=== PATIENT | male | born 1935 | race Caucasian/White ===

== ENCOUNTER → 2019-06-04 | Outpatient (CLI) | payer MEDICARE ==
[~2019-06-04] MED LIST: AMBIEN10 M1 PO; ASPIRIN81 MG PO; ATENOLOL50 MG PO; BUFFERED ASPIR325 M1 PO; CARDIZEM SR120 MG PO; FLECAINIDE ACE100 MG PO; IBUPROFEN200 MG PO; K-DUR 1010 MEQ PO; LIPITOR10 MG PO; METAMUCIL1 PDR PO; METOPROLOL SR25 MG PO; PRADAXA150 MG PO; TENORETIC 50 501 TAB PO; ULTRAM50 MG PO; VITAMIN D1000 IU PO
== END | disposition home or self-care (01) ==
LOC: RAD 09:30
DX: J92.9 Pleural plaque without asbestos (principal); I51.7 Cardiomegaly; M95.4 Acquired deformity of chest and rib; I48.91 Unspecified atrial fibrillation

== ENCOUNTER → 2021-10-08 | Outpatient (CLI) | payer MEDICARE | END | disposition home or self-care (01) | LOC: CT 11:46 | PROVIDERS: ATTEND Physical Therapist | DX: I67.82 Cerebral ischemia (principal) ==